=== PATIENT | female | born 1965 | race African-American/Black ===

== ENCOUNTER 2016-07-15 04:20 | Emergency (ER) | payer MEDICAID ==
[~2016-07-15] VITALS: Ht 167.6 cm; Wt 125.0 kg
[~2016-07-15 04:20] MED LIST: ALBU8I INH; CARV12.5 PO; ESTR.625 PO; FURO20 PO; HYDR-3533 PO; HYDR-3535 PO; METH750T2 PO; OMEP20TA PO; PERC5TAB12 PO; POTA-243 PO; PRAV80 PO; PRIN5TAB PO; REME15TA PO; SULF-154 PO
[2016-07-15 04:26] VITALS: BP 197/104; PULSE 95; RESP 20; TEMP 98.1; O2SAT 100
[2016-07-15 04:30] VITALS: RESP 16; O2SAT 96
[2016-07-15] MEDS ORDERED: HYDROmorphone HCL PF 1 MG/ML VIAL IVS ONE (04:30)
[2016-07-15] MEDS ORDERED: ALUMINUM/MAGNESIUM/SIMETH 30 ML CUP PO ONE (04:30)
[2016-07-15] MEDS ORDERED: LIDOCAINE VISCOUS 2% SOLN 15 ML UDC PO ONE (04:30)
[2016-07-15] MEDS ORDERED: SODIUM CHLORIDE 0.9% FLUSH 5 ML FLUSH IVF PRN (04:30)
[2016-07-15] MEDS ORDERED: PROMETHAZINE INJ 25 MG/ML VIAL IM ONE (05:00)
[2016-07-15 05:06] LABS: AUTOMATED NEUTROPHIL # 3.3 TH/MM3 (1.8-7.7); BASOPHIL % 0.6 % (0.0-2.0); EOSINOPHIL # 0.2 TH/MM3 (0-0.4); EOSINOPHIL % 3.4 % (0.0-4.0); HEMATOCRIT 41.4 % (35.0-46.0); LYMPH % 31.6 % (9.0-44.0); LYMPHOCYTE # 1.9 TH/MM3 (1.0-4.8); MEAN CELL VOLUME 69.2 FL (80.0-100.0); MEAN CORPUSCULAR HEMOGLOBIN 22.6 PG (27.0-34.0); MEAN CORPUSCULAR HGB CONC 32.7 % (32.0-36.0); MONO % 9.7 % (0.0-8.0); NEUT % 54.7 % (16.0-70.0); PLATELET COUNT 162 TH/MM3 (150-450); RED BLOOD COUNT 5.98 MIL/MM3 (4.00-5.30); RED CELL DISTRIBUTION WIDTH 17.3 % (11.6-17.2); WHITE BLOOD COUNT 6.1 TH/MM3 (4.0-11.0)
[2016-07-15 05:08] LABS: HEMO FLAGS AUTO DIFF
[2016-07-15] MEDS ORDERED: MAAL1000 CHEW (05:19)
[2016-07-15 05:20] LABS: ALKALINE PHOSPHATASE 100 U/L (45-117); TOTAL BILIRUBIN ADULT 0.4 MG/DL (0.2-1.0)
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
[2016-07-15 05:21] LABS: ALT (GPT) 19 U/L (10-53); ANION GAP 9 MEQ/L (5-15); AST (GOT) 20 U/L (15-37); BICARBONATE 25.1 MEQ/L (21.0-32.0); BLOOD UREA NITROGEN 11 MG/DL (7-18); CHLORIDE 105 MEQ/L (98-107); GLOMERULAR FILTRATION RATE 107 ML/MIN (>89); SODIUM (NA) 139 MEQ/L (136-145)
[2016-07-15 06:13] LABS: SCAN/DIFF AUTO DIFF CONFIRMED
== END 2016-07-15 05:57 | disposition home or self-care (01) ==
LOC: NEPE 04:20
DX: R10.13 Epigastric pain (principal); R11.2 Nausea with vomiting, unspecified; I51.7 Cardiomegaly; I50.9 Heart failure, unspecified; J44.9 Chronic obstructive pulmonary disease, unspecified; I10 Essential (primary) hypertension
CPT/HCPCS: 80053; 83690; 85025; 96372; 96374; 99284; J1170; J2550

== ENCOUNTER 2016-08-02 00:19 | Emergency (ER) | payer MEDICAID ==
[~2016-08-02] VITALS: Ht 165.1 cm; Wt 110.0 kg
[~2016-08-02 00:19] MED LIST changes: -ALBU8I INH; -CARV12.5 PO; -ESTR.625 PO; -FURO20 PO; -HYDR-3533 PO; -HYDR-3535 PO; +MAAL1000 CHEW; -METH750T2 PO; -OMEP20TA PO; -PERC5TAB12 PO; -POTA-243 PO; -PRAV80 PO; -PRIN5TAB PO; -REME15TA PO; -SULF-154 PO
[2016-08-02 00:21] VITALS: BP 156/80; PULSE 76; RESP 20; TEMP 96.7; O2SAT 96
[2016-08-02] MEDS ORDERED: LISI-515 PO (00:31)
[2016-08-02] MEDS ORDERED: NITR1SUB3 SL (00:31)
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
[2016-08-02] MEDS ORDERED: KETOROLAC TROMETHAMINE 30 MG/ML (IVP) VIAL IVP ONE (03:00)
[2016-08-02] MEDS ORDERED: ORPHENADRINE INJ 60 MG/2 ML AMP IM ONE (03:00)
== END 2016-08-02 03:44 | disposition home or self-care (01) ==
LOC: NEPC 00:19
DX: M25.50 Pain in unspecified joint (principal); I50.9 Heart failure, unspecified; J44.9 Chronic obstructive pulmonary disease, unspecified; I10 Essential (primary) hypertension; F17.210 Nicotine dependence, cigarettes, uncomplicated
CPT/HCPCS: 96372; 96374; 99283; J1885; J2360

== ENCOUNTER 2016-09-27 09:17 | Observation (INO) | payer MEDICAID ==
[~2016-09-27] VITALS: Ht 165.1 cm; Wt 110.0 kg
[2016-09-27] VITALS (13 sets, daily range): BP systolic 137–164; BP diastolic 68–93; PULSE 75–88; RESP 18–28; TEMP 97.1–98; O2SAT 95–100
[~2016-09-27 09:17] MED LIST changes: +LISI-515 PO; +NITR1SUB3 SL
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
[2016-09-27] MEDS ORDERED: HYDR-3583 PO (09:39)
[2016-09-27] MEDS ORDERED: SIMV10TA PO (09:39)
[2016-09-27] MEDS ORDERED: CHLO50TA2 PO (09:39)
[2016-09-27] MEDS ORDERED: RESP: ALBUTEROL 2.5 MG/3 ML NEB (SCH) INH ONE (09:45)
[2016-09-27] MEDS ORDERED: cloNIDine HCL 0.1 MG TAB PO ONE (09:45)
[2016-09-27] MEDS ORDERED: SODIUM CHLORIDE 0.9% FLUSH 10 ML FLUSH IVF PRN (09:45)
[2016-09-27] MEDS: RESP: ALBUTEROL 2.5 MG/IPRATROPIUM 0.5 MG NEB (SCH) INH (09:47)
[2016-09-27 10:20] LABS: AUTOMATED NEUTROPHIL # 3.2 TH/MM3 (1.8-7.7); BASOPHIL % 0.5 % (0.0-2.0); EOSINOPHIL # 0.1 TH/MM3 (0-0.4); EOSINOPHIL % 2.2 % (0.0-4.0); HEMATOCRIT 35.6 % (35.0-46.0); LYMPH % 29.5 % (9.0-44.0); LYMPHOCYTE # 1.6 TH/MM3 (1.0-4.8); MEAN CELL VOLUME 69.8 FL (80.0-100.0); MEAN CORPUSCULAR HEMOGLOBIN 22.5 PG (27.0-34.0); MEAN CORPUSCULAR HGB CONC 32.3 % (32.0-36.0); MONO % 8.6 % (0.0-8.0); NEUT % 59.2 % (16.0-70.0); PLATELET COUNT 193 TH/MM3 (150-450); RED CELL DISTRIBUTION WIDTH 16.9 % (11.6-17.2); WHITE BLOOD COUNT 5.4 TH/MM3 (4.0-11.0)
[2016-09-27 10:21] LABS: HEMO FLAGS AUTO DIFF
[2016-09-27 10:31] LABS: POTASSIUM 3.7 MEQ/L (3.5-5.1)
[2016-09-27 10:46] LABS: SCAN/DIFF AUTO DIFF CONFIRMED
[2016-09-27] MEDS: RESP: ALBUTEROL 2.5 MG/3 ML NEB (SCH) INH (11:04)
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
[2016-09-27] MEDS ORDERED: FUROSEMIDE 40 MG/4 ML VIAL IV PUSH ONE (11:30)
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
[2016-09-27] MEDS ORDERED: SODIUM CHLORIDE 0.9% FLUSH 10 ML FLUSH IV FLUSH PRN (12:45)
[2016-09-27] MEDS ORDERED: ENOXAPARIN SODIUM 40 MG/0.4 ML SYRINGE SQ SCH (14:00)
[2016-09-27] MEDS: ACETAMINOPHEN/HYDROcodone 325 MG/10 MG TAB PO PRN ×2 (15:15→22:01)
[2016-09-27] MEDS: FUROSEMIDE 40 MG/4 ML VIAL IVP SCH (17:31)
[2016-09-27 18:29] LABS: AMPHETAMINE, URINE NEG (NEG); BARBITURATES, URINE NEG (NEG); COCAINE, URINE NEG (NEG)
[2016-09-27 18:38] LABS: CREATINE KINASE 146 U/L (26-192)
[2016-09-27 18:50] LABS: CKMB 0.9 NG/ML (0.5-3.6)
[2016-09-27] MEDS: POTASSIUM CHLORIDE 20 MEQ CONTROLLED RELEASE TAB PO SCH (22:00)
[2016-09-27] MEDS: SODIUM CHLORIDE 0.9% FLUSH 10 ML FLUSH IV FLUSH SCH (22:00)
[2016-09-27] MEDS: RESP: ALBUTEROL 2.5 MG/IPRATROPIUM 0.5 MG NEB (PRN) NEB (22:16)
[2016-09-28 04:21] VITALS: BP 149/94; PULSE 83; RESP 19; TEMP 97.6; O2SAT 95
[2016-09-28 07:13] LABS: ALT (GPT) 23 U/L (10-53); ANION GAP 7 MEQ/L (5-15); AST (GOT) 17 U/L (15-37); BICARBONATE 30.3 MEQ/L (21.0-32.0); BLOOD UREA NITROGEN 18 MG/DL (7-18); CHLORIDE 103 MEQ/L (98-107); GLOMERULAR FILTRATION RATE 123 ML/MIN (>89); POTASSIUM 3.9 MEQ/L (3.5-5.1); SODIUM (NA) 140 MEQ/L (136-145)
[2016-09-28 07:15] LABS: ALKALINE PHOSPHATASE 101 U/L (45-117); TOTAL BILIRUBIN ADULT 0.3 MG/DL (0.2-1.0)
[2016-09-28 07:21] VITALS: PULSE 77
[2016-09-28 07:22] LABS: AUTOMATED NEUTROPHIL # 2.2 TH/MM3 (1.8-7.7); BASOPHIL # 0.1 TH/MM3 (0-0.2); BASOPHIL % 1.1 % (0.0-2.0); EOSINOPHIL # 0.1 TH/MM3 (0-0.4); HEMATOCRIT 38.3 % (35.0-46.0); LYMPH % 43.6 % (9.0-44.0); LYMPHOCYTE # 2.2 TH/MM3 (1.0-4.8); MEAN CELL VOLUME 70.4 FL (80.0-100.0); MEAN CORPUSCULAR HGB CONC 31.2 % (32.0-36.0); MONO % 9.1 % (0.0-8.0); NEUT % 44.2 % (16.0-70.0); PLATELET COUNT 189 TH/MM3 (150-450); RED BLOOD COUNT 5.45 MIL/MM3 (4.00-5.30); RED CELL DISTRIBUTION WIDTH 17.3 % (11.6-17.2)
[2016-09-28 07:32] VITALS: O2SAT 98
[2016-09-28 07:32] LABS: HEMO FLAGS AUTO DIFF
--- NOTE | 2016-09-28 07:37 | HHI.DCPOC ---
Discharge Care Plan Diagnosis: (1) Dyspnea (2) HTN (hypertension) Goals to Promote Your Health * To prevent worsening of your condition and complications * To maintain your health at the optimal level Directions to Meet Your Goals Take your medications as prescribed Follow your dietary instruction Follow activity as directed Keep your appointments as scheduled Take your immunizations and boosters as scheduled If your symptoms worsen call your PCP, if no PCP go to Urgent Care Center or Emergency Room Smoking is Dangerous to Your Health. Avoid second hand smoke Call the 24-hour hour crisis hotline for domestic abuse at Christiana Durand MD R3 Sep 28, 2016 07:37
[2016-09-28] MEDS: RESP: ALBUTEROL 2.5 MG/IPRATROPIUM 0.5 MG NEB (PRN) NEB (07:39)
[2016-09-28] MEDS ORDERED: cloNIDine HCL 0.1 MG TAB PO PRN (07:45)
[2016-09-28 07:46] VITALS: BP 170/93; PULSE 80; RESP 18; TEMP 97.6; O2SAT 96
[2016-09-28] MEDS: FUROSEMIDE 40 MG/4 ML VIAL IVP SCH (08:16)
[2016-09-28] MEDS: SODIUM CHLORIDE 0.9% FLUSH 10 ML FLUSH IV FLUSH SCH (08:17)
[2016-09-28] MEDS: POTASSIUM CHLORIDE 20 MEQ CONTROLLED RELEASE TAB PO SCH (08:17)
[2016-09-28] MEDS ORDERED: PRAVASTATIN SOD 20 MG TAB PO SCH (09:00)
[2016-09-28] MEDS ORDERED: LISINOPRIL 20 MG TAB PO SCH (09:00)
[2016-09-28 09:27] LABS: OVALOCYTES 1+ (NORMAL); SCAN/DIFF AUTO DIFF CONFIRMED
[2016-09-28] MEDS ORDERED: PNEUMOCOCCAL POLYVALENT INJ 25 MCG/0.5 ML SYR IM ONE (10:00)
--- NOTE | 2016-09-28 10:38 | EKG ---
Date Performed: 09/27/2016 Time Performed: 16:02:49 PTAGE: 51 years EKG: JUNCTIONAL RHYTHM POSSIBLE LEFT VENTRICULAR HYPERTROPHY ABNORMAL ECG Compared to prior trac ing no significant change PREVIOUS TRACING : 09/27/2016 09.26 DOCTOR: Nuno Dobbins Interpretating Date/Time 09/28/2016 10:32:03
--- NOTE | 2016-09-28 10:38 | EKG ---
Date Performed: 09/27/2016 Time Performed: 09:26:52 PTAGE: 51 years EKG: JUNCTIONAL RHYTHM MINIMAL VOLTAGE CRITERIA FOR LVH, CONSIDER NORMAL VARIANT NONSPECIFIC T-[address] AVE ABNORMALITY ABNORMAL RHYTHM ECG Compared to prior tracing no significant change PREVIOUS TRACING 02/02/15 @1120 DOCTOR: Nuno Dobbins Interpretating Date/Time 09/28/2016 10:31:52
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
== END 2016-09-28 10:17 | disposition home or self-care (01) ==
LOC: NEPE 09:17 → NEDA 11:50 → NEPFCDU 14:33
PROVIDERS: ADMIT Family Medicine; ATTEND Family Medicine
DX: I11.0 Hypertensive heart disease with heart failure (principal); I50.23 Acute on chronic systolic (congestive) heart failure; J44.9 Chronic obstructive pulmonary disease, unspecified; F31.9 Bipolar disorder, unspecified; F41.9 Anxiety disorder, unspecified; F20.9 Schizophrenia, unspecified; G89.29 Other chronic pain; M54.9 Dorsalgia, unspecified; E78.5 Hyperlipidemia, unspecified; Z87.01 Personal history of pneumonia (recurrent)
CPT/HCPCS: 71010; 80048; 80053; 80307; 82550; 82552; 83880; 84484; 85025; 93005; 94640; 94664; 96374; 97161; 99285; G0378; G8987; G8988; J1650; J1940; J7613

== ENCOUNTER 2017-02-04 09:23 | Inpatient (IN) | payer MEDICAID ==
[~2017-02-04] VITALS: Ht 167.6 cm; Wt 116.6 kg
[~2017-02-04 09:23] MED LIST changes: +CHLO50TA2 PO; +HYDR-3583 PO; -MAAL1000 CHEW; -NITR1SUB3 SL; +SIMV10TA PO
[2017-02-04 09:25] VITALS: BP 196/94; PULSE 69; RESP 20; TEMP 98; O2SAT 99
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
[2017-02-04 11:45] LABS: AUTOMATED NEUTROPHIL # 4.6 TH/MM3 (1.8-7.7); BASOPHIL % 0.6 % (0.0-2.0); EOSINOPHIL # 0.2 TH/MM3 (0-0.4); EOSINOPHIL % 2.5 % (0.0-4.0); HEMATOCRIT 40.5 % (35.0-46.0); HEMO FLAGS DIFF FINAL; LYMPH % 23.6 % (9.0-44.0); LYMPHOCYTE # 1.6 TH/MM3 (1.0-4.8); MEAN CELL VOLUME 74.1 FL (80.0-100.0); MEAN CORPUSCULAR HEMOGLOBIN 22.8 PG (27.0-34.0); MEAN CORPUSCULAR HGB CONC 30.8 % (32.0-36.0); MONO % 6.1 % (0.0-8.0); NEUT % 67.2 % (16.0-70.0); PLATELET COUNT 153 TH/MM3 (150-450); RED BLOOD COUNT 5.46 MIL/MM3 (4.00-5.30); RED CELL DISTRIBUTION WIDTH 17.6 % (11.6-17.2); WHITE BLOOD COUNT 6.8 TH/MM3 (4.0-11.0)
[2017-02-04 12:00] LABS: BICARBONATE 28.4 MEQ/L (21.0-32.0); POTASSIUM 4.2 MEQ/L (3.5-5.1)
[2017-02-04 12:34] VITALS: BP 171/85; PULSE 74; RESP 18; TEMP 98.3; O2SAT 98
[2017-02-04] MEDS ORDERED: SENNOSIDES 8.6 MG TAB PO PRN (12:45)
[2017-02-04] MEDS ORDERED: MAGNESIUM HYDROXIDE SUSP 30 ML CUP PO PRN (12:45)
[2017-02-04] MEDS ORDERED: SODIUM CHLORIDE 0.9% FLUSH 10 ML FLUSH IV FLUSH PRN (12:45)
[2017-02-04] MEDS ORDERED: LACTULOSE SYRUP 20 GM/30 ML CUP PO PRN (12:45)
[2017-02-04] MEDS ORDERED: hydrALAZINE HCL 20 MG/ML VIAL IV PRN (12:45)
[2017-02-04] MEDS ORDERED: BISACODYL 10 MG SUPP RECTAL PRN (12:45)
[2017-02-04] MEDS ORDERED: RESP: ALBUTEROL 2.5 MG/3 ML NEB (PRN) NEB (12:45)
[2017-02-04] MEDS ORDERED: ONDANSETRON HCL 4 MG/2 ML VIAL IVP PRN (12:45)
[2017-02-04] MEDS ORDERED: ACETAMINOPHEN 325 MG TAB PO PRN (12:45)
[2017-02-04] MEDS ORDERED: NALOXONE HCL 0.4 MG/ML AMP IV PRN ×2 (12:45→13:30)
[2017-02-04] MEDS ORDERED: SODIUM CHLOR 0.9% 1000 ML INJ 1,000 ML IV SCH (13:00)
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
[2017-02-04] MEDS: HEPARIN SODIUM - SQ 10,000 UNITS/ML VIAL SQ SCH (13:17)
[2017-02-04] MEDS ORDERED: ACETAMINOPHEN/HYDROcodone 325 MG/5 MG TAB PO PRN (13:30)
[2017-02-04] MEDS: ACETAMINOPHEN/HYDROcodone 325 MG/10 MG TAB PO PRN ×3 (14:42→22:43)
[2017-02-04 15:00] VITALS: BP 158/76; PULSE 73; RESP 19; O2SAT 97
[2017-02-04 16:21] VITALS: O2SAT 100
[2017-02-04] MEDS: RESP: ALBUTEROL 2.5 MG/IPRATROPIUM 0.5 MG NEB (SCH) NEB (16:21)
[2017-02-04 17:47] VITALS: BP 178/91; PULSE 72; RESP 20; TEMP 98.3; O2SAT 97
[2017-02-04 20:26] VITALS: BP 133/67; PULSE 74; RESP 20; TEMP 98.6; O2SAT 97
[2017-02-04] MEDS: DOCUSATE SODIUM 50 MG/SENNA 8.6 MG TAB PO SCH (20:27)
[2017-02-04] MEDS: SODIUM CHLORIDE 0.9% FLUSH 10 ML FLUSH IV FLUSH SCH (20:27)
[2017-02-04] MEDS ORDERED: ENALAPRILAT 1.25 MG/ML VIAL IV PUSH PRN (23:00)
[2017-02-05] VITALS: PULSE 61
[2017-02-05 00:13] VITALS: BP 172/99; PULSE 66; RESP 18; TEMP 97.8; O2SAT 96
[2017-02-05] MEDS: HEPARIN SODIUM - SQ 10,000 UNITS/ML VIAL SQ SCH (01:49)
[2017-02-05] MEDS: ACETAMINOPHEN/HYDROcodone 325 MG/10 MG TAB PO PRN ×2 (02:25→06:15)
[2017-02-05 02:28] VITALS: O2SAT 98
[2017-02-05 04:32] VITALS: BP 160/72; PULSE 74; RESP 18; TEMP 98.7; O2SAT 98
[2017-02-05] MEDS: RESP: ALBUTEROL 2.5 MG/IPRATROPIUM 0.5 MG NEB (SCH) NEB (07:35)
[2017-02-05 07:39] VITALS: O2SAT 97
[2017-02-05 08:47] VITALS: BP 192/93; PULSE 69; RESP 16; TEMP 98; O2SAT 95
[2017-02-05] MEDS: SODIUM CHLORIDE 0.9% FLUSH 10 ML FLUSH IV FLUSH SCH (08:55)
[2017-02-05] MEDS: DOCUSATE SODIUM 50 MG/SENNA 8.6 MG TAB PO SCH (08:55)
[2017-02-05] MEDS ORDERED: LISINOPRIL 20 MG TAB PO SCH (09:00)
[2017-02-05] MEDS ORDERED: PRAVASTATIN SOD 20 MG TAB PO SCH (09:00)
--- NOTE | 2017-02-05 09:02 | HHI.FPPN ---
Subjective Remarks FM Attending Note: Patient seen and examined. S: Chart and all resident physician notes reviewed. In summary this is a 51 year old female who was admitted with an admission diagnosis of Shortness Of Breath, R/O Tb. This patient had presented to the emergency room with her boyfriend. 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 The patient's boyfriend developed congestion and cough with hemoptysis and on his evaluation in the emergency room was found to have a cavitary lesion in his right upper lobe on chest x-ray and has been admitted to rule out tuberculosis. This patient had congestion and cough but no hemoptysis or shortness of breath. She does have a history of COPD. This patient was admitted for further evaluation and treatment but prior to her visit today she left AMA. Objective Vitals Vital Signs Date Time Temp Pulse Resp B/P Pulse Ox O2 Delivery O2 Flow Rate FiO2 02/05/17 08:47 98.0 69 16 192/93 95 02/05/17 07:39 97 21 02/05/17 04:32 98.7 74 18 160/72 98 02/05/17 02:28 98 02/05/17 00:13 97.8 66 18 172/99 96 02/05/17 00:00 61 02/04/17 20:26 98.6 74 20 133/67 97 02/04/17 17:47 98.3 72 20 178/91 97 02/04/17 16:21 100 21 02/04/17 15:00 73 19 158/76 97 Room Air 02/04/17 12:34 98.3 74 18 171/85 98 Room Air 02/04/17 09:25 98.0 69 20 196/94 99 Room Air I/O 02/04/17 02/04/17 02/04/17 02/05/17 02/05/17 02/05/17 06:59 14:59 22:59 06:59 14:59 22:59 Intake Total 240 ml Balance 240 ml Intake Oral 240 ml # Voids 3 2 0 # Bowel Movements 0 0 Result Diagram: 02/04/17 1125 02/04/17 1125 Other Results Item Value Date Time B-Type Natriuretic Peptide 201 PG/ML H 02/04/17 1125 Imaging Last 48 hours Impressions Chest X-Ray 02/04/17 0938 Signed Impressions: Service Date/Time: Saturday, February 04, 2017 10:02 - CONCLUSION: Cardiomegaly and mild interstitial prominence without overt congestive heart failure or pneumonia. Jacques Hernández MD Objective Remarks Sputum Gram stain showed many gram-positive cocci in pairs and clusters with rare pleomorphic gram-positive rods. Few WBCs were noted. NO mention was made of acid-fast bacilli. No PCR results are present in the system. A/P Assessment and Plan Ms. Tang is 51yo female with a PMH of COPD, CHF, and tobacco use who presented to the ED with a cough of 2 days duration. She has had possible exposure to tuberculosis. TB vs COPD vs CHF vs URI. She is being admitted for observation. Problem List: (1) Cough Status: Acute Plan: Possible TB exposure through living situation and contacts- Rule out TB -Chest XR showed cardiomegaly and mild interstitial prominence -Myco/tuberculosis PCR -Sputum culture and gram stain -Sputum AFB culture and stain 02/05/17 Clinically this patient appears to have an acute exacerbation of COPD. There is a questionable exposure to tuberculosis but no definitive diagnosis at this point. The patient has left AMA so further treatment is not possible. We will check with the health department regarding any notification that would be necessary under public health laws for the situation. (2) COPD (chronic obstructive pulmonary disease) Status: Chronic Plan: -Duonebs q4h -Albuterol nebs 2.5mg q2hr prn 02/05/17 This patient left AMA before further treatment was instituted. (3) Hyperlipemia Status: Chronic Plan: -Pravastatin 20mg po daily (4) HTN (hypertension) Status: Chronic Plan: -Lisinopril 20mg po daily (5) CHF (congestive heart failure) Status: Chronic Plan: Pt unsure of her dosing for furosemide. Will hold for now. Will reevaluate if she become symptomatic. -Monitor (6) FEN Status: Acute Plan: Fluids: DC'd IV fluids since pt will be able to hydrate po Electrolytes: Monitor and replace as needed Nutrition: Regular diet GI prophylaxis: PRN DVT prophylaxis: heparin Problem Qualifiers (1) COPD (chronic obstructive pulmonary disease): Qualified Code: J44.9 - Chronic obstructive pulmonary disease, unspecified COPD type Oslos,Mateo R. MD Feb 05, 2017 09:02
[2017-02-05 09:09] LABS: AUTOMATED NEUTROPHIL # 3.7 TH/MM3 (1.8-7.7); BASOPHIL # 0.1 TH/MM3 (0-0.2); EOSINOPHIL # 0.2 TH/MM3 (0-0.4); EOSINOPHIL % 2.6 % (0.0-4.0); HEMATOCRIT 40.2 % (35.0-46.0); HEMO FLAGS DIFF FINAL; LYMPH % 31.3 % (9.0-44.0); MEAN CELL VOLUME 73.6 FL (80.0-100.0); MEAN CORPUSCULAR HEMOGLOBIN 23.8 PG (27.0-34.0); MEAN CORPUSCULAR HGB CONC 32.3 % (32.0-36.0); MONO % 7.4 % (0.0-8.0); NEUT % 57.7 % (16.0-70.0); PLATELET COUNT 156 TH/MM3 (150-450); RED BLOOD COUNT 5.47 MIL/MM3 (4.00-5.30); RED CELL DISTRIBUTION WIDTH 17.3 % (11.6-17.2); WHITE BLOOD COUNT 6.3 TH/MM3 (4.0-11.0)
[2017-02-05 09:18] LABS: M. TUBERCULOSIS PCR NOT DETECTED (NOT DETECT)
[2017-02-05 09:39] LABS: BICARBONATE 28.5 MEQ/L (21.0-32.0); POTASSIUM 3.9 MEQ/L (3.5-5.1)
--- NOTE | 2017-02-05 10:44 | PD.AMA ---
Against Medical Advice Note Diagnosis: (1) CHF, acute (2) Respiratory distress (3) COPD exacerbation (4) Cough (5) Shortness of breath Discharge Disposition: Against Medical Advice Pt Condition on Discharge: Fair Recommended Treatment Course 51 year old female presented yesterday to the ED with coughing and shortness of breath. 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 Her boyfriend also presented to the ED with coughing, hemoptysis, night sweats, weight loss, and a cavitary lesion. Patient has a possible exposure to TB as a result. Patient recommended to stay for further workup to rule out tuberculosis, workup dyspnea and coughing, and treat her symptoms. At this point , due to leaving against medical advise and being a poor learning case at this point, she is not an appropriate candidate for returning to the resident service if she returns to the hospital. AMA Statement Patient Vernell Tang has decided to leave the hospital against medical advice. This patient has the capacity to refuse care and understands the risks of leaving, including permanent disability and/or , and has had an opportunity to ask questions about her condition. The patient has been informed that she may return for care at any time. However, she may not return to the resident service. Jacques Pino MD R3 Feb 05, 2017 10:44
--- NOTE | 2017-02-05 14:19 | HHI.PR ---
Addendum to Inpatient Note Addendum Reason: Additional Documentation Additional Information Called health department and informed them that the patient has a possible TB exposure. With Caren Duenas MD R1 Feb 05, 2017 14:19
== END 2017-02-05 09:16 | disposition left against medical advice (07) | DRG 190 ==
LOC: NEPD 09:23 → NEDA 12:32 → N05A 17:27
PROVIDERS: ADMIT Family Medicine; ATTEND Family Medicine
DX: J44.1 Chronic obstructive pulmonary disease with (acute) exacerbation (principal); J18.9 Pneumonia, unspecified organism; I11.0 Hypertensive heart disease with heart failure; I50.9 Heart failure, unspecified; F20.9 Schizophrenia, unspecified; E78.5 Hyperlipidemia, unspecified; F17.210 Nicotine dependence, cigarettes, uncomplicated; F31.9 Bipolar disorder, unspecified; J44.0 Chronic obstructive pulmonary disease with (acute) lower respiratory infection; G89.29 Other chronic pain
CPT/HCPCS: 71020; 80048; 83880; 85025; 87015; 87040; 87070; 87205; 87556; 87798; 94640; 94664; J0360; J1644; J7613

== ENCOUNTER 2017-07-08 04:14 | Emergency (ER) | payer MEDICAID ==
[~2017-07-08] VITALS: Ht 165.1 cm; Wt 120.0 kg
[~2017-07-08 04:14] MED LIST changes: -CHLO50TA2 PO
[2017-07-08 04:17] VITALS: BP 173/82; PULSE 76; RESP 20; TEMP 98.2; O2SAT 97
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
[2017-07-08 04:45] VITALS: RESP 18; O2SAT 98
[2017-07-08] MEDS ORDERED: KETOROLAC TROMETHAMINE 30 MG/ML (IVP) VIAL IV PUSH ONE (04:45)
[2017-07-08 05:00] LABS: AUTOMATED NEUTROPHIL # 4.2 TH/MM3 (1.8-7.7); BASOPHIL # 0.1 TH/MM3 (0-0.2); BASOPHIL % 1.3 % (0.0-2.0); EOSINOPHIL # 0.2 TH/MM3 (0-0.4); EOSINOPHIL % 2.2 % (0.0-4.0); HEMATOCRIT 36.9 % (35.0-46.0); HEMOGLOBIN 12.3 GM/DL (11.6-15.3); LYMPH % 31.5 % (9.0-44.0); LYMPHOCYTE # 2.3 TH/MM3 (1.0-4.8); MEAN CELL VOLUME 73.1 FL (80.0-100.0); MEAN CORPUSCULAR HEMOGLOBIN 24.3 PG (27.0-34.0); MEAN CORPUSCULAR HGB CONC 33.3 % (32.0-36.0); MEAN PLATELET VOLUME 9.1 FL (7.0-11.0); MONO % 7.2 % (0.0-8.0); MONOCYTE # 0.5 TH/MM3 (0-0.9); NEUT % 57.8 % (16.0-70.0); PLATELET COUNT 171 TH/MM3 (150-450); RED BLOOD COUNT 5.05 MIL/MM3 (4.00-5.30); RED CELL DISTRIBUTION WIDTH 16.2 % (11.6-17.2); WHITE BLOOD COUNT 7.3 TH/MM3 (4.0-11.0)
[2017-07-08 05:10] LABS: ALBUMIN 3.2 GM/DL (3.4-5.0); AST (GOT) 20 U/L (15-37); BICARBONATE 26.3 MEQ/L (21.0-32.0); BLOOD UREA NITROGEN 12 MG/DL (7-18); CALCIUM 8.5 MG/DL (8.5-10.1); CHLORIDE 107 MEQ/L (98-107); CREATININE 0.67 MG/DL (0.50-1.00); GLOMERULAR FILTRATION RATE 112 ML/MIN (>89); GLUCOSE,RANDOM 95 MG/DL (74-106); LIPASE 130 U/L (73-393); PROTHROMBIN TIME - PATIENT 9.9 SEC (9.8-11.6); SODIUM (NA) 140 MEQ/L (136-145)
[2017-07-08 05:11] LABS: ALT (GPT) 18 U/L (10-53)
[2017-07-08 05:15] LABS: ALKALINE PHOSPHATASE 105 U/L (45-117); TOTAL BILIRUBIN ADULT 0.2 MG/DL (0.2-1.0); TOTAL PROTEIN 7.1 GM/DL (6.4-8.2); TROPONIN I LESS THAN 0.02 NG/ML (0.02-0.05)
[2017-07-08] MEDS ORDERED: ONDANSETRON HCL 4 MG/2 ML VIAL IV ONE (05:15)
--- NOTE | 2017-07-08 05:23 | RADRPT ---
EXAM DATE/TIME: 07/08/2017 04:50 [facility] COMPARISON: CHEST SINGLE AP, September 27, 2016, 10:55. INDICATIONS : Cough. MEDICAL HISTORY : None. SURGICAL HISTORY : None. ENCOUNTER: Initial ACUITY: 1 day PAIN SCORE: 0/10 LOCATION: Bilateral chest FINDINGS: The heart size is enlarged. The lungs are grossly clear. No effusion is seen. CONCLUSION: Cardiomegaly. Hiren Winn MD on July 08, 2017 at 5:19 Board Certified Radiologist. This report was verified electronically.
[2017-07-08 06:29] LABS: AMORPHOUS SEDIMENT, URINE RARE; BACTERIA, URINE RARE /hpf; BILIRUBIN, URINE NEG (NEG); BLOOD, URINE NEG (NEG); GLUCOSE,URINE NEG (NEG); KETONE, URINE NEG (NEG); MUCUS URINE FEW /lpf (OCC); NITRITE,URINE NEG (NEG); SQUAMOUS EPITHELIAL CELL URINE 19 /hpf (0-5); URINE COLOR YELLOW (YELLW/STRAW); URINE LEUKOCYTE ESTERASE LARGE (NEG)
[2017-07-08] MEDS ORDERED: ASPIRIN 81 MG CHEW TAB CHEW ONE (06:45)
[2017-07-08] MEDS ORDERED: NITROGLYCERIN 2% OINT 1 GM PACKET TOPICAL ONE (06:45)
[2017-07-08] MEDS ORDERED: CYCL5TAB PO (06:55)
[2017-07-08] MEDS ORDERED: MELO7.5T27 PO (06:55)
--- NOTE | 2017-07-09 23:31 | EKG ---
Date Performed: 07/08/2017 Time Performed: 04:29:23 PTAGE: 52 years EKG: Sinus rhythm MODERATE VOLTAGE CRITERIA FOR LVH, CONSIDER NORMAL VARIANT NONSPECIFIC T-WAVE ABNORMALITY BORDERLINE ECG PREVIOUS TRACING : 09/27/2016 16.02 Since previous tracing, no significant change noted DOCTOR: Randall Malone Interpretating Date/Time 07/09/2017 23:30:33
== END 2017-07-08 07:11 | disposition home or self-care (01) ==
LOC: NEPE 04:14 → UNDOADMOB 06:39 → NEDA 06:39 → NEPE 07:11
DX: M25.50 Pain in unspecified joint (principal); M79.1 Myalgia; J44.9 Chronic obstructive pulmonary disease, unspecified; E66.9 Obesity, unspecified; E78.5 Hyperlipidemia, unspecified; I11.0 Hypertensive heart disease with heart failure; I50.9 Heart failure, unspecified; F20.9 Schizophrenia, unspecified; R94.31 Abnormal electrocardiogram [ECG] [EKG]
CPT/HCPCS: 71045; 80053; 81001; 82550; 82552; 83690; 83735; 83880; 84484; 85025; 85610; 85652; 85730; 93005; 96374; 99285; J1885

== ENCOUNTER 2017-08-05 01:07 | Emergency (ER) | payer MEDICAID ==
[~2017-08-05] VITALS: Ht 165.1 cm; Wt 160.0 kg
[~2017-08-05 01:07] MED LIST changes: +CYCL5TAB PO; +MELO7.5T27 PO
[2017-08-05 01:10] VITALS: BP 192/111; PULSE 84; RESP 18; TEMP 98.2; O2SAT 99
[2017-08-05] MEDS ORDERED: RESP: ALBUTEROL 2.5 MG/IPRATROPIUM 0.5 MG NEB (SCH) NEB ONE (02:00)
[2017-08-05] MEDS ORDERED: KETOROLAC TROMETHAMINE 60 MG/2 ML (IM) VIAL IM ONE (02:00)
[2017-08-05] MEDS ORDERED: FLUCONAZOLE 100 MG TAB PO ONE (02:00)
[2017-08-05] MEDS ORDERED: DIAZEPAM 5 MG TAB PO ONE (02:00)
[2017-08-05] MEDS ORDERED: RESP: LIDOCAINE HCL 4% PF 5 ML NEB NEB ONE (02:00)
[2017-08-05] MEDS ORDERED: predniSONE 20 MG TAB PO ONE (02:00)
[2017-08-05] MEDS ORDERED: MEDR4PAK PO (03:20)
[2017-08-05] MEDS ORDERED: VENTAER INH (03:20)
[2017-08-05] MEDS ORDERED: CYCL10TA PO (03:20)
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
== END 2017-08-05 03:28 | disposition home or self-care (01) ==
LOC: NEPC 01:07
DX: J45.901 Unspecified asthma with (acute) exacerbation (principal); M54.12 Radiculopathy, cervical region; B37.3 Candidiasis of vulva and vagina; F31.9 Bipolar disorder, unspecified; I11.0 Hypertensive heart disease with heart failure; I50.9 Heart failure, unspecified; J44.9 Chronic obstructive pulmonary disease, unspecified; E78.00 Pure hypercholesterolemia, unspecified; F20.9 Schizophrenia, unspecified
CPT/HCPCS: 87491; 87591; 94664; 96372; 99283; J1885; J7512

== ENCOUNTER 2017-09-01 20:31 | Emergency (ER) | payer OTHER, MEDICAID ==
[~2017-09-01 20:31] MED LIST changes: +CYCL10TA PO; +MEDR4PAK PO; +VENTAER INH
[2017-09-01 20:40] VITALS: PULSE 130; RESP 25; TEMP 99.7; O2SAT 97
--- NOTE | 2017-09-01 21:23 | RADRPT ---
EXAM DATE/TIME: 09/01/2017 20:53 [facility] COMPARISON: CHEST SINGLE AP, July 08, 2017, 4:50. INDICATIONS : Cough. MEDICAL HISTORY : Chronic obstructive pulmonary disease. Cardiovascular disease. SURGICAL HISTORY : None. ENCOUNTER: Initial ACUITY: 1 day PAIN SCORE: 0/10 LOCATION: Bilateral chest FINDINGS: PA and lateral views of the chest demonstrate the lungs to be symmetrically aerated without evidence of mass, infiltrate or effusion. The cardiomediastinal contours are unremarkable. Osseous structure s are intact. CONCLUSION: No acute cardiopulmonary disease demonstrated. Hiren Gonzalez MD on September 01, 2017 at 21:21 Board Certified Radiologist. This report was verified electronically.
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
[2017-09-02] MEDS ORDERED: MEDR4PAK PO (03:26)
[2017-09-02] MEDS ORDERED: ZITHTAB PO (03:26)
[2017-09-02] MEDS ORDERED: BENZ100 PO (03:26)
[2017-09-02] MEDS ORDERED: OSEL75 PO (03:31)
== END 2017-09-01 21:18 | disposition left against medical advice (07) ==
LOC: NED 20:31
DX: R05 Cough (principal); R07.89 Other chest pain; R06.02 Shortness of breath; J45.909 Unspecified asthma, uncomplicated; I50.9 Heart failure, unspecified; J44.9 Chronic obstructive pulmonary disease, unspecified; Z53.21 Procedure and treatment not carried out due to patient leaving prior to being seen by health care provider
CPT/HCPCS: 71046; 99283

== ENCOUNTER 2017-09-02 02:22 | Emergency (ER) | payer MEDICAID, OTHER ==
[~2017-09-02] VITALS: Ht 165.1 cm; Wt 121.4 kg
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
[2017-09-02 02:53] VITALS: PULSE 101; RESP 20
[2017-09-02] MEDS ORDERED: MEDR4PAK PO (03:26)
[2017-09-02] MEDS ORDERED: BENZ100 PO (03:26)
[2017-09-02] MEDS ORDERED: ZITHTAB PO (03:26)
[2017-09-02] MEDS ORDERED: OSEL75 PO (03:31)
--- NOTE | 2017-09-02 03:40 | RADRPT ---
EXAM DATE/TIME: 09/02/2017 03:07 [place] COMPARISON: CHEST SINGLE AP, July 08, 2017, 4:50. INDICATIONS : Cough. MEDICAL HISTORY : Chronic obstructive pulmonary disease. Cardiovascular disease. SURGICAL HISTORY : None. ENCOUNTER: Initial ACUITY: 1 day PAIN SCORE: 0/10 LOCATION: Bilateral chest FINDINGS: Cardiomegaly with pulmonary vascular engorgement. Bibasilar intraalveolar filtrates. No discernible e ffusions. Degenerative spine. CONCLUSION: 1. Pulmonary edema. Sunny Harry Jr., MD on September 02, 2017 at 3:37 Board Certified Radiologist. This report was verified electronically.
[2017-09-02] MEDS ORDERED: OSELTAMIVIR PHOSPHATE 75 MG CAP PO ONE (03:45)
[2017-09-02] MEDS ORDERED: FUROSEMIDE 80 MG TAB PO ONE (03:45)
--- NOTE | 2017-09-02 23:25 | EKG ---
Date Performed: 09/02/2017 Time Performed: 03:03:59 PTAGE: 52 years EKG: SINUS TACHYCARDIA NONSPECIFIC T-WAVE ABNORMALITY ABNORMAL RHYTHM ECG PREVIOUS TRACING : 07/08/2017 04.29 Since the previous tracing, no significant change noted DOCTOR: Randall Malone Interpretating Date/Time 09/02/2017 23:23:54
== END 2017-09-02 04:56 | disposition home or self-care (01) ==
LOC: NEPE 02:22
DX: J09.X2 Influenza due to identified novel influenza A virus with other respiratory manifestations (principal); I50.9 Heart failure, unspecified; I11.0 Hypertensive heart disease with heart failure; R00.0 Tachycardia, unspecified; E78.00 Pure hypercholesterolemia, unspecified; J44.9 Chronic obstructive pulmonary disease, unspecified; F20.9 Schizophrenia, unspecified; F31.9 Bipolar disorder, unspecified; F17.210 Nicotine dependence, cigarettes, uncomplicated; Z88.8 Allergy status to other drugs, medicaments and biological substances; Z79.899 Other long term (current) drug therapy
CPT/HCPCS: 71045; 87804; 93005; 99285

== ENCOUNTER 2017-11-17 00:33 | Emergency (ER) | payer MEDICAID ==
[~2017-11-17 00:33] MED LIST changes: +BENZ100 PO; -CYCL10TA PO; -CYCL5TAB PO; +OSEL75 PO
[2017-11-17 00:38] VITALS: BP 170/116; PULSE 92; RESP 20; TEMP 98.6; O2SAT 97
[2017-11-17 01:20] VITALS: O2SAT 95
[2017-11-17] MEDS ORDERED: FURO20TA PO (01:23)
[2017-11-17] MEDS ORDERED: CLON0.2T PO ×2 (01:23)
[2017-11-17] MEDS ORDERED: POTA8CAP PO (01:23)
--- NOTE | 2017-11-17 01:39 | RADRPT ---
EXAM DATE: 11/17/2017 1:35 AM EDT AGE/SEX: 52 years / Female INDICATIONS: Short of breath. CLINICAL DATA: This is the patient's initial encounter. Patient reports that signs and symptoms have been present for 1 day and indicates a pain score of 3/10. MEDICAL/SURGICAL HISTORY: Chronic obstructive pulmonary disease. Cardiovascular disease. None. COMPARISON: [facility] [place], CHEST SINGLE AP, 09/02/2017. . FINDINGS: There is improvement in pulmonary edema since the prior exam, however slight edema remains. Cardiomeg jimena has not changed. CONCLUSION: Improvement in pulmonary edema. Electronically signed by: Valentin Argueta MD 11/17/2017 1:37 AM EDT
[2017-11-17 01:42] LABS: AUTOMATED NEUTROPHIL # 7.3 TH/MM3 (1.8-7.7); BASOPHIL # 0.1 TH/MM3 (0-0.2); BASOPHIL % 0.8 % (0.0-2.0); EOSINOPHIL # 0.1 TH/MM3 (0-0.4); EOSINOPHIL % 0.6 % (0.0-4.0); HEMATOCRIT 38.2 % (35.0-46.0); HEMOGLOBIN 12.6 GM/DL (11.6-15.3); LYMPH % 14.6 % (9.0-44.0); LYMPHOCYTE # 1.3 TH/MM3 (1.0-4.8); MEAN CELL VOLUME 70.9 FL (80.0-100.0); MEAN CORPUSCULAR HEMOGLOBIN 23.3 PG (27.0-34.0); MEAN CORPUSCULAR HGB CONC 32.9 % (32.0-36.0); MEAN PLATELET VOLUME 9.4 FL (7.0-11.0); MONO % 4.8 % (0.0-8.0); MONOCYTE # 0.4 TH/MM3 (0-0.9); NEUT % 79.2 % (16.0-70.0); PLATELET COUNT 184 TH/MM3 (150-450); RED BLOOD COUNT 5.39 MIL/MM3 (4.00-5.30); RED CELL DISTRIBUTION WIDTH 17.1 % (11.6-17.2); WHITE BLOOD COUNT 9.2 TH/MM3 (4.0-11.0)
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
[2017-11-17 01:55] LABS: ALBUMIN 3.4 GM/DL (3.4-5.0); ALT (GPT) 20 U/L (10-53); AST (GOT) 20 U/L (15-37); BICARBONATE 23.8 MEQ/L (21.0-32.0); BLOOD UREA NITROGEN 12 MG/DL (7-18); CALCIUM 8.7 MG/DL (8.5-10.1); CHLORIDE 105 MEQ/L (98-107); CREATININE 0.75 MG/DL (0.50-1.00); GLOMERULAR FILTRATION RATE 98 ML/MIN (>89); GLUCOSE,RANDOM 137 MG/DL (74-106); SODIUM (NA) 139 MEQ/L (136-145)
[2017-11-17 01:59] LABS: ALKALINE PHOSPHATASE 117 U/L (45-117); TOTAL BILIRUBIN ADULT 0.3 MG/DL (0.2-1.0); TOTAL PROTEIN 7.7 GM/DL (6.4-8.2); TROPONIN I LESS THAN 0.02 NG/ML (0.02-0.05)
[2017-11-17] MEDS ORDERED: RESP: ALBUTEROL 2.5 MG/IPRATROPIUM 0.5 MG NEB (SCH) NEB ONE (02:00)
--- NOTE | 2017-11-17 02:08 | PD ---
Physical Exam Date Seen by Provider: November 17, 2017 Time Seen by Provider: 02:06 Narrative For full history and physical examination please see previous progress note. I was asked to perform an I&D Data Data Last Documented VS Vital Signs Date Time Temp Pulse Resp B/P (MAP) Pulse Ox O2 Delivery O2 Flow Rate FiO2 11/17/17 01:20 95 Room Air 11/17/17 00:38 98.6 92 20 170/116 (134) Orders Orders Electrocardiogram (11/17/17 01:17) Complete Blood Count With Diff (11/17/17 01:17) Comprehensive Metabolic Panel (11/17/17 01:17) Creatine Kinase (Cpk) (11/17/17 01:17) Ckmb (Isoenzyme) Profile (11/17/17:17) Troponin I (11/17/17:17) B-Type Natriuretic Peptide (11/17/17:17) Prothrombin Time / Inr (Pt) (11/17/17 01:17) Act Partial Throm Time (Ptt) (11/17/17 01:17) Lipase (11/17/17 01:17) Chest, Single Ap (11/17/17 01:17) Iv Access Insert/Monitor (11/17/17 01:17) Ecg Monitoring (11/17/17 01:17) Oximetry (11/17/17 01:17) Albuterol-Ipratropium Neb (Duoneb Neb) (11/17/17 02:00) CKMB (11/17/17 01:20) CKMB% (11/17/17 01:20) Labs Laboratory Tests Test 11/17/17 01:20 White Blood Count 9.2 TH/MM3 Red Blood Count 5.39 MIL/MM3 Hemoglobin 12.6 GM/DL Hematocrit 38.2 % Mean Corpuscular Volume 70.9 FL Mean Corpuscular Hemoglobin 23.3 PG Mean Corpuscular Hemoglobin Concent 32.9 % Red Cell Distribution Width 17.1 % Platelet Count 184 TH/MM3 Mean Platelet Volume 9.4 FL Neutrophils (%) (Auto) 79.2 % Lymphocytes (%) (Auto) 14.6 % Monocytes (%) (Auto) 4.8 % Eosinophils (%) (Auto) 0.6 % Basophils (%) (Auto) 0.8 % Neutrophils # (Auto) 7.3 TH/MM3 Lymphocytes # (Auto) 1.3 TH/MM3 Monocytes # (Auto) 0.4 TH/MM3 Eosinophils # (Auto) 0.1 TH/MM3 Basophils # (Auto) 0.1 TH/MM3 CBC Comment DIFF FINAL Differential Comment Prothrombin Time 10.0 SEC Prothromb Time International Ratio 1.0 RATIO Activated Partial Thromboplast Time 26.1 SEC Blood Urea Nitrogen 12 MG/DL Creatinine 0.75 MG/DL Random Glucose 137 MG/DL Total Protein 7.7 GM/DL Albumin 3.4 GM/DL Calcium Level 8.7 MG/DL Alkaline Phosphatase 117 U/L Aspartate Amino Transf (AST/SGOT) 20 U/L Alanine Aminotransferase (ALT/SGPT) 20 U/L Total Bilirubin 0.3 MG/DL Sodium Level 139 MEQ/L Potassium Level 3.9 MEQ/L Chloride Level 105 MEQ/L Carbon Dioxide Level 23.8 MEQ/L Anion Gap 10 MEQ/L Estimat Glomerular Filtration Rate 98 ML/MIN Total Creatine Kinase 155 U/L Troponin I LESS THAN 0.02 NG/ML Lipase 93 U/L [facility] Medical Record Reviewed: Yes Supervised Visit with ELLIS: Yes Interpretation(s) Vital Signs Date Time Temp Pulse Resp B/P (MAP) Pulse Ox O2 Delivery O2 Flow Rate FiO2 11/17/17 01:20 95 Room Air 11/17/17 00:38 98.6 92 20 170/116 (134) 97 Procedures Procedure Narrative After the risks and benefits were discussed the following procedure was performed: INCISION AND DRAINAGE OF ABSCESS: The area was prepped and was sterilely draped. A subcutaneous wheal of 1 % Xylocaine with a total number 2 mL was used to anesthetize the area. The area was properly anesthetized. A number 11 scalpel was used to make a 1-cm incision across the area of the abscess. Cultures were obtained. The abscess was drained an irrigated with normal saline. Quarter inch iodoform packing was placed in the wound. Sterile dressing applied. Patient advised to have packing removed in two days. Diagnosis Primary Impression: COPD exacerbation Tram Coburn November 17, 2017 02:08
[2017-11-17] MEDS ORDERED: CLIN300C5 PO (02:32)
[2017-11-17 02:39] VITALS: O2SAT 96
[2017-11-17] MEDS ORDERED: CLINDAMYCIN 150 MG CAP PO ONE (02:45)
[2017-11-17 02:52] VITALS: BP 171/82; PULSE 87; RESP 16; O2SAT 98
--- NOTE | 2017-11-17 14:14 | EKG ---
Date Performed: 11/17/2017 Time Performed: 01:15:59 PTAGE: 52 years EKG: Sinus rhythm VOLTAGE CRITERIA FOR LVH NONSPECIFIC T-WAVE ABNORMALITY ABNORMAL ECG PREVIOUS TRACING : 09/02/2017 03.03 Since the previous tracing, no significant change noted DOCTOR: Arcadio Gutiérrez Interpretating Date/Time 11/20/2017 07:42:46
== END 2017-11-17 02:57 | disposition home or self-care (01) ==
LOC: NEPE 00:33
DX: J44.1 Chronic obstructive pulmonary disease with (acute) exacerbation (principal); L02.411 Cutaneous abscess of right axilla; I11.0 Hypertensive heart disease with heart failure; I50.9 Heart failure, unspecified; E78.00 Pure hypercholesterolemia, unspecified; F17.200 Nicotine dependence, unspecified, uncomplicated
CPT/HCPCS: 10060; 71045; 80053; 82550; 82552; 83690; 83880; 84484; 85025; 85610; 85730; 93005; 94664

== ENCOUNTER 2018-06-16 03:55 | Inpatient (IN) ==
[2018-06-16] MEDS ORDERED: Sodium Chlor 0.9% Inj 500 ML IV.SIG ONE (04:03)
[2018-06-16] MEDS ORDERED: Morphine Inj 4 MG/ML Vial IV.PUSH ONE ×3 (04:03→22:11)
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
[2018-06-16 04:31] LABS: Baso # (Auto) 0.1 th/mm3 (0.0-0.2); Baso % (Auto) 0.8 % (0.0-2.0); Eos # (Auto) 0.1 th/mm3 (0.0-0.4); Eos % (Auto) 1.5 % (0.0-4.0); Hematocrit 42.6 % (35.0-46.0); Hemoglobin 13.9 gm/dL (11.6-15.3); Lymph # (Auto) 3.1 th/mm3 (1.0-4.8); Lymph % (Auto) 37.5 % (9.0-44.0); Mean Corpuscular HGB Conc 32.5 % (32.0-36.0); Mean Corpuscular Hemoglobin 23.7 pg (27.0-34.0); Mean Corpuscular Volume 72.8 fL (80.0-100.0); Mean Platelet Volume 8.7 fL (7.0-11.0); Mono # (Auto) 0.7 th/mm3 (0.0-0.9); Mono % (Auto) 9.1 % (0.0-8.0); Neut # (Auto) 4.2 th/mm3 (1.8-7.7); Neut % (Auto) 51.1 % (16.0-70.0); Platelet Count 225 th/mm3 (150-450); Red Blood Count 5.86 mil/mm3 (4.00-5.30); Red Cell Distribution Width 16.9 % (11.6-17.2); White Blood Count 8.2 th/mm3 (4.0-11.0)
[2018-06-16 04:48] LABS: Activated Partial Thrombo Time 26.8 sec (23.4-31.7)
[2018-06-16 04:51] LABS: Alanine Aminotransferase 22 U/L (10-53); Anion Gap 10 meq/L (5-15); Aspartate Aminotransferase 18 U/L (15-37); Blood Urea Nitrogen 21 mg/dL (7-18); Calcium 9.1 mg/dL (8.5-10.1); Carbon Dioxide 24.3 meq/L (21.0-32.0); Chloride 104 meq/L (98-107); Glomerular Filtration Rate Greater Than 89 mL/min (>89); Glucose,Random 133 mg/dL (74-106); Lipase 77 U/L (73-393); Magnesium 2.2 mg/dL (1.5-2.5); Potassium 3.6 meq/L (3.5-5.1); Sodium 138 meq/L (136-145)
[2018-06-16 04:54] LABS: Alkaline Phosphatase 139 U/L (45-117); Creatine Kinase 191 U/L (26-192); Total Protein 8.4 g/dL (6.4-8.2)
--- NOTE | 2018-06-16 05:04 | XR ---
EXAM DATE: 06/16/2018 4:21 AM EST AGE/SEX: 53 years / Female INDICATIONS: Epigastric pain. CLINICAL DATA: This is the patient's initial encounter. Patient reports that signs and symptoms have been present for 1 day and indicates a pain score of 10/10. MEDICAL/SURGICAL HISTORY: Chronic obstructive pulmonary disease. Cardiovascular disease. Chron ic obstructive pulmonary disease. None. COMPARISON: [facility] [place], CHEST SINGLE AP, 11/17/2017. . FINDINGS: Cardiac silhouette is enlarged with diffuse interstitial prominence and indistinct central pulmonary vascularity. Remainder of the exam is unchanged. CONCLUSION: 1. Cardiomegaly with mild pulmonary vascular congestion. Electronically signed by: Rolando Xiao MD Board Certified Radiologist 06/16/2018 5:03 AM SUDARSHAN Maldonado
[2018-06-16 05:07] LABS: Creatine Kinase MB 1.3 ng/mL (0.5-3.6)
[2018-06-16 05:23] LABS: Bacteria,Urine Rare /hpf; Bilirubin,Urine Negative (Negative); Clarity,Urine Hazy (Clear); Color,Urine Amber (Yellw/Straw); Glucose,Urine (UA) Negative (Negative); Hyaline Casts,Urine 6 /lpf (0-3); Leukocyte Esterase,Urine Negative (Negative); Mucus,Urine Many /lpf (Occasional); Nitrite,Urine Negative (Negative); Specific Gravity,Urine 1.035 (1.002-1.035); Squamous Epithelial Cell,Urine 5 /hpf (0-5)
[2018-06-16 05:24] LABS: Urobilinogen,Urine 0.2 mg/dL (Less than 2)
[2018-06-16] MEDS ORDERED: Ketorolac Inj 30 MG/ML (IVP) Vial IV.PUSH ONE (06:15)
[2018-06-16] MEDS ORDERED: Aluminum/Magnesium/Simethacone Susp 30 ML UDC PO ONE (06:17)
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
[2018-06-16 07:20] LABS: Amphetamine Screen,Urine Neg (Neg); Barbiturate Screen,Urine Neg (Neg); Cannabinoid Screen,Urine Neg (Neg); Cocaine Screen,Urine Neg (Neg)
[2018-06-16 07:24] LABS: Opiate Screen,Urine Pos (Neg)
[2018-06-16] MEDS ORDERED: Morphine Sulfate Inj 2 MG/ML Vial IV.PUSH ONE (09:15)
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
[2018-06-16] MEDS: Ketorolac Inj 30 MG/ML (IVP) Vial IV.PUSH PRN ×2 (11:34→17:00)
[2018-06-16] MEDS ORDERED: Dextrose 50% in Water 50 ML Vial IV.PUSH PRN (16:26)
[2018-06-17] MEDS: Ketorolac Inj 30 MG/ML (IVP) Vial IV.PUSH PRN ×4 (01:00→20:29)
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
[2018-06-18] MEDS: Ketorolac Inj 30 MG/ML (IVP) Vial IV.PUSH PRN (02:30)
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
[2018-06-18 09:12] VITALS: BP 174/91; PULSE 55; RESP 17; TEMP 97.8; O2SAT 99
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
== END 2018-06-18 10:15 | disposition home or self-care (01) | DRG 389 ==
LOC: NEPC 03:55 → NEDA 06:52 → N07 08:30
PROVIDERS: ADMIT Hospitalist; ATTEND Hospitalist
CPT/HCPCS: 71010; 71045; 74000; 74018; 74177; 80053; 80307; 81001; 82550; 82552; 82948; 82962; 83605; 83690; 83735; 84484; 84703; 85025; 85610; 85730; 90761; 90774; 90775; 90784; 96361; 96374; 96375; 99285; C8952; J0780; J1885; J2270; J2405; J7040; J7120; Q9967

== ENCOUNTER 2018-06-27 03:29 | Inpatient (IN) ==
[2018-06-27] MEDS ORDERED: Famotidine PF Inj 20 MG/2 ML Vial IV.PUSH ONE (04:30)
[2018-06-27] MEDS ORDERED: Sod Chloride 0.9% Inj 1,000 ML IV.CONT SCH (04:30)
[2018-06-27] MEDS ORDERED: Morphine Inj 4 MG/ML Vial IV.PUSH ONE ×2 (04:30→06:55)
[2018-06-27 05:00] LABS: Baso % (Auto) 0.8 % (0.0-2.0); Eos # (Auto) 0.1 th/mm3 (0.0-0.4); Eos % (Auto) 1.6 % (0.0-4.0); Hematocrit 38.2 % (35.0-46.0); Hemoglobin 12.3 gm/dL (11.6-15.3); Lymph # (Auto) 1.5 th/mm3 (1.0-4.8); Lymph % (Auto) 26.1 % (9.0-44.0); Mean Corpuscular HGB Conc 32.3 % (32.0-36.0); Mean Corpuscular Hemoglobin 23.8 pg (27.0-34.0); Mean Corpuscular Volume 73.5 fL (80.0-100.0); Mean Platelet Volume 9.3 fL (7.0-11.0); Mono # (Auto) 0.4 th/mm3 (0.0-0.9); Neut # (Auto) 3.8 th/mm3 (1.8-7.7); Neut % (Auto) 64.5 % (16.0-70.0); Platelet Count 192 th/mm3 (150-450); Red Blood Count 5.19 mil/mm3 (4.00-5.30); Red Cell Distribution Width 16.6 % (11.6-17.2); White Blood Count 5.9 th/mm3 (4.0-11.0)
[2018-06-27 05:08] LABS: Activated Partial Thrombo Time 22.2 sec (23.4-31.7); Prothrombin Time 9.7 sec (9.8-11.6)
[2018-06-27 05:14] LABS: Alanine Aminotransferase 23 U/L (10-53); Albumin 3.5 g/dL (3.4-5.0); Anion Gap 9 meq/L (5-15); Aspartate Aminotransferase 22 U/L (15-37); Blood Urea Nitrogen 13 mg/dL (7-18); Calcium 8.8 mg/dL (8.5-10.1); Carbon Dioxide 27.4 meq/L (21.0-32.0); Chloride 105 meq/L (98-107); Glomerular Filtration Rate Greater Than 89 mL/min (>89); Glucose,Random 114 mg/dL (74-106); Lipase 57 U/L (73-393); Potassium 3.7 meq/L (3.5-5.1); Sodium 141 meq/L (136-145)
[2018-06-27 05:16] LABS: Alkaline Phosphatase 117 U/L (45-117); Total Protein 7.7 g/dL (6.4-8.2)
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
[2018-06-27 07:23] LABS: Amorphous Sediment,Urine Moderate /hpf; Bacteria,Urine Occasional /hpf; Bilirubin,Urine Negative (Negative); Clarity,Urine Hazy (Clear); Color,Urine Yellow (Yellw/Straw); Glucose,Urine (UA) Negative (Negative); Leukocyte Esterase,Urine Negative (Negative); Mucus,Urine Few /lpf (Occasional); Nitrite,Urine Negative (Negative); Specific Gravity,Urine 1.046 (1.002-1.035); Squamous Epithelial Cell,Urine 1 /hpf (0-5); Urobilinogen,Urine 4 or Greater mg/dL (Less than 2)
[2018-06-27] MEDS ORDERED: Morphine Inj 4 MG/ML Vial IV.PUSH PRN ×2 (07:23)
[2018-06-27] MEDS: Sod Chloride 0.9% Inj 1,000 ML IV.CONT SCH ×3 (09:19→23:18)
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
[2018-06-27] MEDS ORDERED: HYDROmorphone PF Inj 1 MG/ML Ampul IV.PUSH ONE (11:00)
[2018-06-27] MEDS ORDERED: HYDROmorphone PF Inj 1 MG/ML Ampul SQ ONE (11:00)
[2018-06-27] MEDS: Morphine Inj 4 MG/ML Vial IV.PUSH PRN ×2 (12:13→17:26)
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
[2018-06-27] MEDS: HYDROmorphone PF Inj 2 MG/ML Vial IV.PUSH PRN ×3 (14:13→23:12)
[2018-06-27] MEDS ORDERED: Influenza (Quadrivalent) Vaccine 0.5 ML Syringe IM ONE (14:15)
[2018-06-28] MEDS: HYDROmorphone PF Inj 2 MG/ML Vial IV.PUSH PRN ×4 (02:43→23:13)
[2018-06-28] MEDS: Sod Chloride 0.9% Inj 1,000 ML IV.CONT SCH ×4 (06:45→22:59)
[2018-06-28 11:24] LABS: Baso % (Auto) 0.4 % (0.0-2.0); Eos # (Auto) 0.1 th/mm3 (0.0-0.4); Eos % (Auto) 2.8 % (0.0-4.0); Hematocrit 32.4 % (35.0-46.0); Hemoglobin 10.5 gm/dL (11.6-15.3); Lymph # (Auto) 1.4 th/mm3 (1.0-4.8); Lymph % (Auto) 40.6 % (9.0-44.0); Mean Corpuscular HGB Conc 32.2 % (32.0-36.0); Mean Corpuscular Hemoglobin 23.8 pg (27.0-34.0); Mean Corpuscular Volume 73.7 fL (80.0-100.0); Mean Platelet Volume 8.8 fL (7.0-11.0); Mono # (Auto) 0.4 th/mm3 (0.0-0.9); Mono % (Auto) 11.5 % (0.0-8.0); Neut # (Auto) 1.6 th/mm3 (1.8-7.7); Neut % (Auto) 44.7 % (16.0-70.0); Platelet Count 169 th/mm3 (150-450); Red Cell Distribution Width 16.6 % (11.6-17.2); White Blood Count 3.6 th/mm3 (4.0-11.0)
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
[2018-06-28 11:32] LABS: Albumin 3.1 g/dL (3.4-5.0); Anion Gap 7 meq/L (5-15); Aspartate Aminotransferase 18 U/L (15-37); Blood Urea Nitrogen 10 mg/dL (7-18); Calcium 8.3 mg/dL (8.5-10.1); Carbon Dioxide 24.9 meq/L (21.0-32.0); Chloride 109 meq/L (98-107); Glomerular Filtration Rate Greater Than 89 mL/min (>89); Glucose,Random 79 mg/dL (74-106); Potassium 3.5 meq/L (3.5-5.1); Sodium 141 meq/L (136-145)
[2018-06-28 11:33] LABS: Alanine Aminotransferase 17 U/L (10-53)
[2018-06-28 11:35] LABS: Alkaline Phosphatase 96 U/L (45-117); Total Protein 6.6 g/dL (6.4-8.2)
[2018-06-28] MEDS: Nystatin 100,000 UNITS/GM Powder 15 GM Bottle TOPICAL SCH ×5 (11:49→23:00)
[2018-06-28] MEDS: Morphine Inj 4 MG/ML Vial IV.PUSH PRN ×2 (12:27→20:18)
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
[2018-06-29] MEDS: Morphine Inj 4 MG/ML Vial IV.PUSH PRN ×2 (00:35→05:53)
[2018-06-29] MEDS: HYDROmorphone PF Inj 2 MG/ML Vial IV.PUSH PRN (03:10)
[2018-06-29 07:57] VITALS: PULSE 66; RESP 20; TEMP 98.2; O2SAT 95
[2018-06-29] MEDS: HYDROmorphone PF Inj 0.5 MG/0.5 ML Syringe IV.PUSH PRN ×2 (08:05→12:01)
[2018-06-29] MEDS: Nystatin 100,000 UNITS/GM Powder 15 GM Bottle TOPICAL SCH ×2 (08:07→12:01)
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
[2018-06-29] MEDS ORDERED: Senna/Docusate Sodium 8.6/50 MG Tablet PO PRN (10:42)
[2018-06-29] MEDS ORDERED: hydrALAZINE 25 MG Tablet PO PRN (10:42)
[2018-06-29] MEDS ORDERED: Lisinopril 20 MG Tablet PO SCH (10:45)
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
[2018-06-29 11:05] VITALS: BP 136/94
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
--- NOTE | 2018-06-29 11:55 | P.PNGS ---
Subjective Interval history: Ambulating in the room +BM Physical Exam Vital signs: Vital Signs 06/28/18 12:00 06/28/18 13:46 06/28/18 16:00 Temperature 98.0 F Pulse Rate 60 77 81 Respiratory Rate 16 16 18 Blood Pressure 179/88 H 169/85 H 166/83 H Pulse Oximetry 97 98 94 L 06/28/18 19:15 06/28/18 20:00 06/28/18 20:20 Temperature 98.4 F Pulse Rate 81 Respiratory Rate 18 20 18 Blood Pressure 179/83 H Pulse Oximetry 94 L 06/28/18 23:31 06/28/18 23:55 06/29/18 00:40 Temperature 98.5 F Pulse Rate 67 Respiratory Rate 20 18 18 Blood Pressure 174/81 H Pulse Oximetry 94 L 06/29/18 03:33 06/29/18 03:40 06/29/18 07:55 Temperature 97.9 F 98.2 F Pulse Rate 74 66 Respiratory Rate 20 18 20 Blood Pressure 181/91 H 193/95 H Pulse Oximetry 93 L 95 06/29/18 08:03 06/29/18 11:04 Temperature Pulse Rate Respiratory Rate Blood Pressure 188/84 H 136/94 H Pulse Oximetry Intake & Output 06/28/18 06/29/18 06/29/18 18:59 06:59 18:59 Intake Total 1000 / 1000 960 / 960 Balance 1000 / 1000 960 / 960 Intake: IV 1000 / 1000 NS Inj 1,000 ML @ 100 mls/hr IV 1000 / 1000 .CONT .Q10H ANDREW Rx#:[id number] Oral 960 / 960 Other: # Voids 1 5 1 Date of Last Bowel Movement 06/28/18 Narrative: Alert and awake Abd: soft; non tender non distended Results - Labs 06/28/18 09:10 06/28/18 09:10 - Imaging Imaging: ITS Impressions Abdomen/Pelvis CT 06/27/18 04:30 CONCLUSION: 1. An abnormal bowel gas pattern is again identified which is similar in appearance to the most recent CT with multiple loops of dilated fluid-filled small bowel with multiple air-fluid levels. The distal small bowel is decompressed and these findings remain of concern for small bowel obstruction. 2. Stable deformity postsurgical changes involving the right ilium with multiple metallic fragments. Abdomen X-Ray 06/29/18 00:00 CONCLUSION: No bowel obstruction, ileus or perforation. Assessment and Plan - Plan 53 year old female with recurrent SBO -KUB continues to show improvement -Will advance diet to soft diet -Would prefer the patient to eat lunch to make sure she is able to tolerate a diet -She is persistent about leaving today -Again, GS recommendation is to have regular diet prior to DC
[2018-06-29] MEDS: Sod Chloride 0.9% Inj 1,000 ML IV.CONT SCH (11:56)
== END 2018-06-29 14:09 | disposition home or self-care (01) | DRG 389 ==
LOC: NEPC 03:29 → NEDA 07:23 → NEPGCP 11:30
PROVIDERS: ADMIT Hospitalist; ATTEND Hospitalist
CPT/HCPCS: 74019; 74177; 80053; 81001; 83690; 85025; 85610; 85730; 90471; 90658; 90686; 90761; 90774; 90775; 90776; 90784; 96361; 96374; 96375; 96376; 99285; C8952; G0008; J1170; J2270; J2405; J7030; Q2038; Q9967